=== PATIENT | female | born 1965 | race African-American/Black ===

== ENCOUNTER 2016-09-23 12:16 | Emergency (ER) | payer OTHER ==
[2016-09-23 13:00] LABS: Clarity Slightly Cloudy (Clear); Glucose, Urine (Dipstick) Negative (Negative); Leukocyte Negative (Negative); Nitrite Negative (Negative); Protein, Urine (Dipstick) Negative (Neg-Trace); Specific Gravity, Urine 1.025 (1.005-1.030)
[2016-09-23 13:01] LABS: Bacteria/HPF 1+ HPF (None Seen); Bilirubin Negative (Negative); Blood, Urine Moderate (Negative); Urobilinogen 0.2 mg/dL (0.2-1.0); WBC/HPF 0-3 HPF (0-3)
[2016-09-23] MEDS ORDERED: Benzonatate 100 MG CAP ONE (13:01)
== END 2016-09-23 13:34 | disposition home or self-care (01) ==
LOC: MADERS 12:16
DX: J20.9 Acute bronchitis, unspecified (principal); F17.210 Nicotine dependence, cigarettes, uncomplicated
CPT/HCPCS: 81001; 87077; 87086; 87186; 99283

== ENCOUNTER 2016-10-23 15:02 | Emergency (ER) | payer OTHER ==
[2016-10-23] MEDS ORDERED: Lidocaine 1% 20 ML MDV ONE (15:34)
[2016-10-23] MEDS ORDERED: HYDROcodone/Acetaminophen 10/325 mg Tablet ONE (15:34)
[2016-10-23] MEDS ORDERED: cefTRIAXone\\ROCEPHIN 1 GM VIAL ONE (15:34)
[2016-10-23] MEDS ORDERED: Azithromycin 250 MG TAB ONE (15:34)
== END 2016-10-23 15:55 | disposition home or self-care (01) ==
LOC: MADERS 15:02
DX: N76.0 Acute vaginitis (principal); F17.210 Nicotine dependence, cigarettes, uncomplicated
CPT/HCPCS: 96372; J0696; J2001

== ENCOUNTER 2016-10-28 18:48 | Emergency (ER) | payer OTHER ==
[~2016-10-28 18:48] MED LIST: Lidocaine 1% 20 ML MDV ONE
[2016-10-28] MEDS ORDERED: cefTRIAXone\\ROCEPHIN 250 MG VIAL ONE (19:41)
[2016-10-28] MEDS ORDERED: Doxycycline 100 MG CAP ONE (19:41)
[2016-10-28] MEDS ORDERED: metroNIDAZOLE 250 MG TAB ONE ×2 (19:56→19:59)
[2016-10-28] MEDS ORDERED: Fluconazole 100 MG TAB ONE (20:04)
[2016-11-03 19:59] LABS: Chlamydia by PCR Inconclusive (NotDetected); GC by PCR Inconclusive (NotDetected)
== END 2016-10-28 20:15 | disposition home or self-care (01) ==
LOC: MADERS 18:48
DX: A64 Unspecified sexually transmitted disease (principal); J40 Bronchitis, not specified as acute or chronic; F17.210 Nicotine dependence, cigarettes, uncomplicated
CPT/HCPCS: 87480; 87491; 87510; 87591; 87660; 96372; J0696; J2001

== ENCOUNTER 2016-11-19 12:24 | Emergency (ER) | payer OTHER ==
[2016-11-19] MEDS ORDERED: Ketorolac Tromethamine 30 MG/ML VIAL ONE (12:51)
[2016-11-19] MEDS ORDERED: Acetaminophen 500 MG TAB ONE (12:51)
[2016-11-19] MEDS ORDERED: Ketorolac Tromethamine 60 MG/2 ML VIAL ONE (12:55)
--- NOTE | 2016-11-19 14:26 | RAD ---
PA AND LATERAL CHEST: History: Chest pain. FINDINGS: Comparison made with exam of 01-19-08. The heart size is normal. The lungs are well expanded without focal areas of consolidation, pneumoth orax, or pleural effusions. Old right clavicular shaft fracture is again seen. IMPRESSION: No radiographic evidence of acute cardiopulmonary process. POS: [facility]
== END 2016-11-19 13:25 | disposition home or self-care (01) ==
LOC: MADERS 12:24
DX: M54.5 Low back pain (principal); F17.210 Nicotine dependence, cigarettes, uncomplicated
CPT/HCPCS: 71020; 96372; J1885

== ENCOUNTER 2016-12-22 14:59 | Emergency (ER) | payer OTHER ==
--- NOTE | 2016-12-22 15:55 | RAD ---
TWO VIEW CHEST: Comparison: 11-19-16 Indication: Cough. FINDINGS: There are patchy bibasilar opacities. Lungs are hyperinflated. Cardiac silhouette is within normal l imits of size. Biapical pleural irreguralities similar. IMPRESSION: 1. Hyperinflated lungs indicating COPD. 2. Patchy bibasilar opacities which may relate to scarring or volume loss. POS: [facility]
[2016-12-22 17:06] LABS: #Basophils 0.1 thou/uL (0.0-0.2); #Eosinphils 0.1 thou/uL (0.0-0.7); #Lymphocytes 2.3 thou/uL (1.20-3.40); #Monocytes 0.4 thou/uL (0.11-0.59); #Neutrophils 3.4 thou/uL (1.40-6.50); %Basophils 0.9 % (0.0-1.0); %Lymphocytes 36.4 % (21.0-51.0); %Monocytes 6.9 % (0.0-10.0); %Neutrophils 53.8 % (42.0-75.0); Hemoglobin 13.5 g/dL (12.0-16.0); Mean Corpuscular HGB CONC 33.1 g/dL (32.0-36.0); Mean Corpuscular Hemoglobin 31.2 pg (27.0-31.0); Mean Corpuscular Volume 94.4 fl (81.0-99.0); Mean Platelet Volume 8.6 fL (7.4-10.4); Platelet Count 289 thou/uL (130-400); RBC Distribution Width 12.8 % (11.5-14.5); Red Blood Cell (RBC) Count 4.33 mill/uL (4.20-5.40); White Blood Cell (WBC) Count 6.2 thou/uL (4.8-10.8)
--- NOTE | 2016-12-22 17:12 | RAD ---
THREE VIEWS OF THE RIGHT SMALL TOE: Date: 12-22-17 History: Injury. FINDINGS: No fracture is seen. There does appear to be mild irregularity involving the distal interphalangeal joint and septic arthritis cannot be entirely excluded on this exam. There is a subcutaneous soft ti ssue swelling about the small toe. No dislocation is seen. IMPRESSION: Subcutaneous soft tissue swelling right small toe with irregularity in the region of the distal inte rphalangeal joint. Septic arthritis cannot be entirely excluded. Clinical correlation is recommended . POS: [facility]
[2016-12-22 17:20] LABS: ALT (SGPT) 12 U/L (8-55); AST (SGOT) 14 U/L (5-34); Albumin 4.2 g/dL (3.5-5.0); Alkaline Phosphatase 89 U/L (40-150); Anion Gap 15 mmol/L (10-20); BUN (Urea Nitrogen) 11 mg/dL (7.0-18.7); Bilirubin, Total 0.7 mg/dL (0.2-1.2); CRP (Inflammatory) 0.53 mg/dL (= or < 0.5); Calc. Creatinine Clearance 0 mL/min (70-130); Calcium 9.6 mg/dL (7.8-10.44); Carbon Dioxide 22 mmol/L (22-29); Chloride 107 mmol/L (98-107); Estimated GFR-MDRD Greater than 90; Glucose 77 mg/dL (70-105); Potassium 3.8 mmol/L (3.5-5.1); Protein, Total 8.2 g/dL (6.0-8.3); Sodium 140 mmol/L (136-145)
== END 2016-12-22 17:47 | disposition home or self-care (01) ==
LOC: MADERS 14:59
DX: J44.1 Chronic obstructive pulmonary disease with (acute) exacerbation (principal); F17.210 Nicotine dependence, cigarettes, uncomplicated
CPT/HCPCS: 36415; 71020; 80053; 85025; 85652; 86140

== ENCOUNTER 2017-01-06 12:32 | Emergency (ER) | payer OTHER | END 2017-01-06 14:00 | disposition left against medical advice (07) | LOC: MADERS 12:32 | DX: Z53.21 Procedure and treatment not carried out due to patient leaving prior to being seen by health care provider (principal) ==

== ENCOUNTER 2017-01-27 09:03 | Emergency (ER) | payer OTHER ==
[2017-01-27] MEDS ORDERED: AMOXicillin 250 MG CAP ONE (10:04)
[2017-01-27] MEDS ORDERED: Benzonatate 100 MG CAP ONE (10:04)
[2017-01-27] MEDS ORDERED: Naproxen 500 MG TAB ONE (10:04)
== END 2017-01-27 10:11 | disposition home or self-care (01) ==
LOC: MADERS 09:03
DX: J20.9 Acute bronchitis, unspecified (principal); M79.1 Myalgia; R59.0 Localized enlarged lymph nodes; F17.210 Nicotine dependence, cigarettes, uncomplicated
CPT/HCPCS: 99283

== ENCOUNTER 2017-07-03 11:36 | Emergency (ER) | payer OTHER ==
[2017-07-03 11:54] LABS: Bilirubin Negative (Negative); Blood, Urine Small (Negative); Clarity Cloudy (Clear); Glucose, Urine (Dipstick) Negative (Negative); Leukocyte Trace (Negative); Nitrite Positive (Negative); Protein, Urine (Dipstick) Negative (Neg-Trace); Urobilinogen 0.2 mg/dL (0.2-1.0)
[2017-07-03 11:59] LABS: Bacteria/HPF 4+ HPF (None Seen); RBC/HPF 0-3 HPF (0-3); Squamous Epithelial 0-3 HPF (0-3)
--- NOTE | 2017-07-03 12:44 | RAD ---
RIGHT FOREARM TWO VIEWS: History: Fall. Right forearm pain. FINDINGS: The right forearm is intact. POS: [facility]
--- NOTE | 2017-07-03 13:10 | RAD ---
RIGHT HAND 3 VIEWS: Date: 07/03/17 HISTORY: Fall. Right thumb pain and deformity. FINDINGS/IMPRESSION: No acute fracture or dislocation is seen. There is subluxation of the first MCP joint. POS: [facility]
[2017-07-03] MEDS ORDERED: Sulfameth/Trimethoprim DS 800-160mg TAB ONE (13:33)
[2017-07-03] MEDS ORDERED: HYDROcodone/Acetaminophen 10/325 mg Tablet ONE (13:33)
[2017-07-03] MEDS ORDERED: Naproxen 500 MG TAB ONE (13:33)
== END 2017-07-03 14:27 | disposition home or self-care (01) ==
LOC: MADERS 11:36
DX: S63.111A Subluxation of metacarpophalangeal joint of right thumb, initial encounter (principal); N39.0 Urinary tract infection, site not specified; F17.210 Nicotine dependence, cigarettes, uncomplicated; W19.XXXA Unspecified fall, initial encounter
CPT/HCPCS: 81001; 87077; 87086; 87186; J2001

== ENCOUNTER 2017-09-17 16:35 | Outpatient (CLI) | payer OTHER ==
[2017-09-17 17:05] LABS: #Basophils 0.1 thou/uL (0.0-0.2); #Eosinphils 0.1 thou/uL (0.0-0.7); #Lymphocytes 2.6 thou/uL (1.20-3.40); #Monocytes 0.6 thou/uL (0.11-0.59); #Neutrophils 4.9 thou/uL (1.40-6.50); %Basophils 1.2 % (0.0-1.0); %Eosinophils 1.4 % (0.0-10.0); %Lymphocytes 31.3 % (21.0-51.0); %Monocytes 7.3 % (0.0-10.0); %Neutrophils 58.8 % (42.0-75.0); Hemoglobin 12.9 g/dL (12.0-16.0); Mean Corpuscular HGB CONC 32.2 g/dL (32.0-36.0); Mean Corpuscular Hemoglobin 29.3 pg (27.0-31.0); Mean Platelet Volume 8.5 fL (7.4-10.4); Platelet Count 288 thou/uL (130-400); RBC Distribution Width 13.3 % (11.5-14.5); Red Blood Cell (RBC) Count 4.42 mill/uL (4.20-5.40); White Blood Cell (WBC) Count 8.4 thou/uL (4.8-10.8)
--- NOTE | 2017-09-17 19:00 | RAD ---
TWO VIEWS RIGHT FOREARM: Date: 09-17-17 History: Injury to right forearm one week ago. Comparison: 07-03-17 FINDINGS: There is no fracture or dislocation seen involving the right forearm. There has been no interval rabago ge from the study on 07-13-17. A distal ulna is slightly displaced dorsally. This is probably projecti onal in origin. IMPRESSION: No acute osseous abnormality of the right forearm. POS: [facility]
--- NOTE | 2017-09-17 19:00 | RAD ---
RIGHT HAND THREE VIEWS: 09/17/2017 PROVIDED CLINICAL HISTORY: Right hand pain, status post injury. COMPARISON: 07/03/2017 FINDINGS: No evidence for fracture or other acute osseous abnormality. If there is persistent clinical concern, conservative management and follow-up imaging are advised. IMPRESSION: As above. POS: [facility]
--- NOTE | 2017-09-17 19:01 | RAD ---
RIGHT ELBOW FOUR VIEWS: History: Right elbow pain. FINDINGS: Radiocapitellar alignment is maintained. Minimal osteophytosis. NO acute fracture, dislocation, or fl uid distention of the joint capsule. IMPRESSION: No acute osseous abnormalities are demonstrated. POS: [facility]
[2017-09-17 21:54] LABS: Follow-up Chemistry Comp? YES; Follow-up Result - Chemistry REPORT FAXED
[2017-09-19 16:30] LABS: ANA Symphony (Qualitative) Negative (Negative); EliA RAS New Method **** NEW METHOD ****; Rheumatoid Factor IgA Antibody 3.1 IU/mL (<14 Negative); Rheumatoid Factor IgM Antibody Less than 0.5 IU/mL (<3.5 Negative); dsDNA IgG Antibody 1.6 IU/mL (<10 Negative)
== END 2017-09-17 16:36 | disposition home or self-care (01) ==
LOC: MADLAB 16:35
PROVIDERS: ATTEND Nurse Practitioner Family
DX: M25.521 Pain in right elbow (principal); M79.644 Pain in right finger(s)
CPT/HCPCS: 36415; 83520; 84550; 85025; 86038; 86225

== ENCOUNTER 2018-03-12 10:05 | Emergency (ER) | payer MEDICAID, OTHER | END 2018-03-12 10:38 | disposition home or self-care (01) | LOC: MADERS 10:05 | DX: L73.9 Follicular disorder, unspecified (principal); F17.210 Nicotine dependence, cigarettes, uncomplicated; K92.2 Gastrointestinal hemorrhage, unspecified | CPT/HCPCS: 99282 ==

== ENCOUNTER 2018-04-04 18:08 | Emergency (ER) | payer OTHER ==
[2018-04-04 19:34] LABS: #Basophils 0.1 thou/uL (0.0-0.2); #Eosinphils 0.1 thou/uL (0.0-0.7); #Lymphocytes 2.9 thou/uL (1.20-3.40); #Monocytes 0.8 thou/uL (0.11-0.59); #Neutrophils 5.8 thou/uL (1.40-6.50); %Eosinophils 1.4 % (0.0-10.0); %Lymphocytes 29.7 % (21.0-51.0); %Monocytes 8.3 % (0.0-10.0); %Neutrophils 59.6 % (42.0-75.0); Mean Corpuscular Hemoglobin 30.6 pg (27.0-31.0); Mean Corpuscular Volume 92.6 fL (78.0-98.0); Mean Platelet Volume 8.1 fL (7.4-10.4); Platelet Count 314 thou/uL (130-400); RBC Distribution Width 12.8 % (11.5-14.5); Red Blood Cell (RBC) Count 4.26 mill/uL (4.20-5.40); White Blood Cell (WBC) Count 9.6 thou/uL (4.8-10.8)
[2018-04-04 19:40] LABS: Prothrombin Time 12.8 SEC (12.0-14.7)
[2018-04-04 19:41] LABS: PTT 25.9 SEC (22.9-36.1)
[2018-04-04 19:50] LABS: ALT (SGPT) 11 U/L (8-55); AST (SGOT) 14 U/L (5-34); Alkaline Phosphatase 106 U/L (40-150); Anion Gap 12 mmol/L (10-20); BUN (Urea Nitrogen) 18 mg/dL (7.0-18.7); Bilirubin, Total 0.5 mg/dL (0.2-1.2); Calc. Creatinine Clearance 0 mL/min (70-130); Calcium 9.5 mg/dL (7.8-10.44); Carbon Dioxide 26 mmol/L (22-29); Chloride 107 mmol/L (98-107); Estimated GFR-MDRD 66; Globulin 3.4 g/dL (2.4-3.5); Glucose 102 mg/dL (70-105); Potassium 3.9 mmol/L (3.5-5.1); Protein, Total 7.4 g/dL (6.0-8.3); Sodium 141 mmol/L (136-145)
== END 2018-04-04 21:11 | disposition short-term general hospital (02) ==
LOC: MADERS 18:08
DX: K92.2 Gastrointestinal hemorrhage, unspecified (principal); F17.210 Nicotine dependence, cigarettes, uncomplicated
CPT/HCPCS: 80053; 82274; 85025; 85610; 85730; 99285

== ENCOUNTER 2018-05-08 20:13 | Emergency (ER) | payer OTHER ==
[2018-05-08] MEDS ORDERED: Ketorolac Tromethamine 60 MG/2 ML VIAL ONE (20:56)
--- NOTE | 2018-05-08 22:25 | RAD ---
EXAM: CHEST TWO VIEWS: 05/08/18 HISTORY: Chest injury. COMPARISON: 12/22/16. FINDINGS: Minimal increased linear and interstitial markings noted bilaterally evidence for some chronic change . Biapical pleural thickening. Heart size is within normal limits. No pneumothorax, pleural effusion, or other significant acute intrathoracic disease. IMPRESSION: Scattered chronic lung changes in the bases as well as some biapical pleural thickening. No pneumoth orax or pleural effusion or other significant acute intrathoracic disease. Atherosclerosis of the aor ta. POS: [facility]
== END 2018-05-08 21:37 | disposition home or self-care (01) ==
LOC: MADERS 20:13
DX: S20.212A Contusion of left front wall of thorax, initial encounter (principal); F17.210 Nicotine dependence, cigarettes, uncomplicated; Z71.6 Tobacco abuse counseling; W18.30XA Fall on same level, unspecified, initial encounter
CPT/HCPCS: 71046; 96372; 99406; J1885

== ENCOUNTER 2018-09-27 20:12 | Emergency (ER) | payer OTHER ==
[2018-09-27] MEDS ORDERED: Ibuprofen 800 MG TAB ONE (20:29)
--- NOTE | 2018-09-27 20:41 | RAD ---
EXAM: 3 views of the right thumb HISTORY: Injury to the thumb with pain COMPARISON: None FINDINGS: There may be a small fracture of the base of the distal phalanx near the interphalangeal shari int. Alternatively, this could represent a sesamoid bone. Mild soft tissue swelling is seen. No degenerative changes are present. No radiopaque foreign body is seen. IMPRESSION: Possible distal phalanx fracture. Correlate with point tenderness at the interphalangeal joint.
== END 2018-09-27 21:12 | disposition home or self-care (01) ==
LOC: MADERS 20:12
DX: S62.521A Displaced fracture of distal phalanx of right thumb, initial encounter for closed fracture (principal); L73.9 Follicular disorder, unspecified; F17.210 Nicotine dependence, cigarettes, uncomplicated; Z71.6 Tobacco abuse counseling; W22.8XXA Striking against or struck by other objects, initial encounter
CPT/HCPCS: 90471

== ENCOUNTER 2018-10-01 10:08 | Emergency (ER) | payer OTHER | END 2018-10-01 11:00 | disposition home or self-care (01) | LOC: MADERS 10:08 | DX: L73.9 Follicular disorder, unspecified (principal); F17.210 Nicotine dependence, cigarettes, uncomplicated | CPT/HCPCS: 99283 ==

== ENCOUNTER 2018-10-22 08:46 | Emergency (ER) | payer OTHER ==
[2018-10-22] MEDS ORDERED: Ondansetron ODT 4 MG TAB ONE (09:23)
[2018-10-22] MEDS ORDERED: Loperamide HCl 2 MG CAP ONE (09:23)
--- NOTE | 2018-10-22 10:10 | RAD ---
LEFT HAND 3 VIEWS: HISTORY: Hand injury. FINDINGS: There are some very mild osteoarthritic changes present. There are no signs of fracture or dislocati on. IMPRESSION: No evidence of fracture. POS: [facility]
== END 2018-10-22 10:15 | disposition home or self-care (01) ==
LOC: MADERS 08:46
DX: S63.611A Unspecified sprain of left index finger, initial encounter (principal); R11.2 Nausea with vomiting, unspecified; R19.7 Diarrhea, unspecified; F17.210 Nicotine dependence, cigarettes, uncomplicated; X58.XXXA Exposure to other specified factors, initial encounter
CPT/HCPCS: Q0162

== ENCOUNTER 2019-01-24 18:49 | Emergency (ER) | payer OTHER | END 2019-01-24 19:15 | disposition home or self-care (01) | LOC: MADERS 18:49 | DX: R19.7 Diarrhea, unspecified (principal); F17.210 Nicotine dependence, cigarettes, uncomplicated | CPT/HCPCS: 99283 ==

== ENCOUNTER 2019-03-09 19:52 | Emergency (ER) | payer OTHER | END 2019-03-09 20:30 | disposition left against medical advice (07) | LOC: MADERS 19:52 | DX: Z53.21 Procedure and treatment not carried out due to patient leaving prior to being seen by health care provider (principal) ==

== ENCOUNTER 2019-03-10 08:18 | Emergency (ER) | payer OTHER ==
[~2019-03-10 08:18] MED LIST changes: -Lidocaine 1% 20 ML MDV ONE; +Sodium Chloride Irrig Solution 250 ML BOT ONE
[2019-03-10] MEDS ORDERED: Lidocaine 1% w/Epinephrine 1:100K 20 ML VIAL ONE (09:09)
[2019-03-10] MEDS ORDERED: Adacel (T-DAP) 0.5 ML SYRINGE ONE (09:46)
== END 2019-03-10 09:45 | disposition home or self-care (01) ==
LOC: MADERS 08:18
DX: N76.4 Abscess of vulva (principal); F17.210 Nicotine dependence, cigarettes, uncomplicated
CPT/HCPCS: 90715

== ENCOUNTER 2019-10-29 20:56 | Emergency (ER) | payer OTHER ==
[2019-10-29] MEDS ORDERED: Ondansetron ODT 4 MG TAB ONE (21:30)
== END 2019-10-29 21:35 | disposition home or self-care (01) ==
LOC: MADERS 20:56
DX: U07.1 COVID-19 (principal); F17.210 Nicotine dependence, cigarettes, uncomplicated
CPT/HCPCS: 99283; Q0162

== ENCOUNTER 2019-11-18 18:46 | Emergency (ER) | payer OTHER ==
[2019-11-18 19:23] LABS: Bilirubin Negative (Negative); Blood, Urine Small (Negative); Clarity Slightly Cloudy (Clear); Glucose, Urine (Dipstick) Negative (Negative); Ketone, Urine Negative (Negative); Leukocyte Negative (Negative); Nitrite Negative (Negative); Protein, Urine (Dipstick) Negative (Neg-Trace); Specific Gravity, Urine 1.025 (1.005-1.030)
[2019-11-18 19:26] LABS: Bacteria/HPF 2+ HPF (None Seen); RBC/HPF 0-3 HPF (0-3); WBC/HPF 0-3 HPF (0-3)
[2019-11-18] MEDS ORDERED: Morphine 2 MG/ML SYRINGE ONE (19:47)
[2019-11-18] MEDS ORDERED: Sodium Chloride 0.9% 1,000 ML ONE (19:47)
[2019-11-18] MEDS ORDERED: Ondansetron PF 4 MG/2 ML Vial ONE (19:47)
[2019-11-18 20:03] LABS: #Basophils 0.1 thou/uL (0.0-0.2); #Eosinphils 0.2 thou/uL (0.0-0.7); #Lymphocytes 3.3 thou/uL (1.20-3.40); #Monocytes 0.7 thou/uL (0.11-0.59); #Neutrophils 5.2 thou/uL (1.40-6.50); %Basophils 0.9 % (0.0-1.0); %Eosinophils 1.9 % (0.0-10.0); %Lymphocytes 34.7 % (21.0-51.0); %Monocytes 7.3 % (0.0-10.0); %Neutrophils 55.2 % (42.0-75.0); Hemoglobin 12.6 g/dL (12.0-16.0); Mean Corpuscular HGB CONC 33.4 g/dL (32.0-36.0); Mean Corpuscular Volume 93.1 fL (78.0-98.0); Platelet Count 285 thou/uL (130-400); RBC Distribution Width 12.6 % (11.5-14.5); Red Blood Cell (RBC) Count 4.07 mill/uL (4.20-5.40); White Blood Cell (WBC) Count 9.4 thou/uL (4.8-10.8)
[2019-11-18 20:07] LABS: ALT (SGPT) 8 U/L (8-55); AST (SGOT) 9 U/L (5-34); Albumin 3.8 g/dL (3.5-5.0); Alkaline Phosphatase 85 U/L (40-110); Anion Gap 13 mmol/L (10-20); BUN (Urea Nitrogen) 10 mg/dL (9.8-20.1); Bilirubin, Total 0.5 mg/dL (0.2-1.2); Calc. Creatinine Clearance 0 mL/min (70-130); Calcium 8.8 mg/dL (7.8-10.44); Carbon Dioxide 25 mmol/L (22-29); Chloride 107 mmol/L (98-107); Estimated GFR-MDRD Greater than 90; Globulin 3.2 g/dL (2.4-3.5); Glucose 95 mg/dL (70-105); Lipase 43 U/L (8-78); Potassium 3.4 mmol/L (3.5-5.1); Sodium 142 mmol/L (136-145)
--- NOTE | 2019-11-18 20:28 | RAD ---
TWO VIEWS CHEST: 11/18/19 PROVIDED CLINICAL HISTORY: Productive cough. FINDINGS: Comparison 05/08/28. The cardiac and mediastinal silhouette is within normal limits. No focal consolidation, pleural fluid , or pneumothorax apparent. IMPRESSION: No evidence for an acute cardiopulmonary process. POS: [facility]
--- NOTE | 2019-11-18 20:42 | CT ---
CT ABDOMEN AND PELVIS WITH IV CONTRAST: 11/18/19. PROVIDED CLINICAL HISTORY: Abdominal pain. FINDINGS: Comparison 04/04/18. The visualized lung bases are free of significant opacity. The liver, spleen, pancreas, kidneys and adrenal glands demonstrate an unremarkable CT appearance. St able right renal hypodensity likely a cyst. Changes of prior cholecystectomy are redemonstrated. Ther e is no bowel dilatation, inflammatory fat stranding, free fluid or free air apparent. The appendix a ppears normal. The regional major vascular structures appear unremarkable with the exception of scattered vascular c alcification. The osseous structures demonstrate no concerning lytic or blastic lesions. IMPRESSION: No evidence for an acute process. POS: [facility]
== END 2019-11-18 21:00 | disposition home or self-care (01) ==
LOC: MADERS 18:46
DX: M54.6 Pain in thoracic spine (principal); R19.7 Diarrhea, unspecified; R10.9 Unspecified abdominal pain; F17.210 Nicotine dependence, cigarettes, uncomplicated
CPT/HCPCS: 71046; 74177; 80053; 81003; 81015; 83605; 83690; 85025; 96361; 96374; 96375; J2270; J2405; J7050

== ENCOUNTER 2020-02-15 11:42 | Emergency (ER) | payer OTHER ==
[2020-02-15] MEDS ORDERED: HYDROcodone/Acetaminophen 5/325 mg Tablet ONE (12:26)
--- NOTE | 2020-02-15 12:47 | RAD ---
Exam: XR Knee Rt 4 View STANDARD HISTORY: Right knee pain without history of trauma. COMPARISON: None FINDINGS: No acute fracture, dislocation, or other acute osseous abnormality is identified. There is question of minimal edema in the region of Hoffa's fat pad. IMPRESSION: No acute osseous abnormality is identified. If there is concern for internal derangement, MRI right k nee can be performed for further evaluation.
--- NOTE | 2020-02-15 12:52 | RAD ---
EXAM: 3 views of the lumbosacral spine HISTORY: Low back pain COMPARISON: None FINDINGS: 3 views of the lumbosacral spine shows normal height and alignment of the vertebral bodies and intervertebral discs without fracture or subluxation. Mild osteophyte formation is seen in the lower lumbosacral spine. The sacroiliac joints are unremarkable. Vascular calcifications are seen in the aorta. Cholecystectom y clips are seen. IMPRESSION: Mild degenerative changes without acute osseous abnormality.
== END 2020-02-15 15:10 | disposition home or self-care (01) ==
LOC: MADERS 11:42
DX: S33.5XXA Sprain of ligaments of lumbar spine, initial encounter (principal); S80.01XA Contusion of right knee, initial encounter; F32.9 Major depressive disorder, single episode, unspecified; F17.210 Nicotine dependence, cigarettes, uncomplicated; V43.52XA Car driver injured in collision with other type car in traffic accident, initial encounter
CPT/HCPCS: 72100

== ENCOUNTER 2020-04-12 07:25 | Outpatient (CLI) | payer OTHER ==
--- NOTE | 2020-04-12 10:04 | ULT ---
ABDOMINAL ULTRASOUND: HISTORY: Abdominal pain and distention. Discolored stools. FINDINGS: The patient is post cholecystectomy years ago. The common bile duct is normal caliber. The liver and spleen appear unremarkable. Visualized aorta and IVC appear normal. Pancreas is mostly obscured. Both kidneys are imaged and appear unremarkable. Both kidneys measure approximately 11 cm length. IMPRESSION: Unremarkable abdominal ultrasound. POS: [facility]
== END 2020-04-12 07:26 | disposition home or self-care (01) ==
LOC: MADULT 07:25
PROVIDERS: ATTEND Family Medicine
DX: R10.9 Unspecified abdominal pain (principal); R19.5 Other fecal abnormalities; R14.0 Abdominal distension (gaseous)
CPT/HCPCS: 93975

== ENCOUNTER 2020-08-20 00:08 | Emergency (ER) | payer OTHER ==
[2020-08-20 00:50] LABS: Hemoglobin 12.6 g/dL (12.0-16.0); Mean Corpuscular Hemoglobin 30.4 pg (27.0-31.0); Mean Corpuscular Volume 95.2 fL (78.0-98.0); Mean Platelet Volume 10.1 fL (7.4-10.4); Platelet Count 287 thou/uL (130-400); RBC Distribution Width 13.4 % (11.5-14.5); Red Blood Cell (RBC) Count 4.16 mill/uL (4.20-5.40); White Blood Cell (WBC) Count 11.5 thou/uL (4.8-10.8)
[2020-08-20 00:58] LABS: Eosinophils 3 % (0-10); Lymphocytes 20 % (21-51); MDiff Complete? YES; Monocytes 4 % (0-10); Neutrophil 73 % (42-75); Platelet Morphology Comment Appears Adequate; RBC Morphology Normal
[2020-08-20 01:03] LABS: ALT (SGPT) Less than 7 U/L (8-55); AST (SGOT) 9 U/L (5-34); Albumin 3.6 g/dL (3.5-5.0); Alkaline Phosphatase 97 U/L (40-110); Anion Gap 14 mmol/L (10-20); BUN (Urea Nitrogen) 27 mg/dL (9.8-20.1); Bilirubin, Total 0.8 mg/dL (0.2-1.2); Calc. Creatinine Clearance 0 mL/min (70-130); Calcium 8.5 mg/dL (7.8-10.44); Carbon Dioxide 23 mmol/L (22-29); Chloride 105 mmol/L (98-107); Globulin 3.1 g/dL (2.4-3.5); Glucose 154 mg/dL (70-105); Lipase 44 U/L (8-78); Protein, Total 6.7 g/dL (6.0-8.3); Sodium 139 mmol/L (136-145)
[2020-08-20 01:27] LABS: Potassium 2.9 mmol/L (3.5-5.1)
[2020-08-20] MEDS ORDERED: Potassium Chloride 20 MEQ TAB ONE (01:37)
[2020-08-20 01:58] LABS: Bilirubin Negative (Negative); Blood, Urine Negative (Negative); Clarity Clear (Clear); Glucose, Urine (Dipstick) Negative (Negative); Ketone, Urine Negative (Negative); Leukocyte Negative (Negative); Nitrite Negative (Negative); Protein, Urine (Dipstick) Negative (Neg-Trace); Urobilinogen 0.2 mg/dL (Less than 2)
[2020-08-20 02:09] LABS: Amphetamine Not Detected (NotDetected); Barbiturates Screen Not Detected (NotDetected); Benzodiazepine Screen Not Detected (NotDetected); Cocaine Metabolite Screen Detected (NotDetected); Medtox Control Line Valid? VALID (VALID); Methadone Not Detected (NotDetected); Methamphetamine Not Detected (NotDetected); Opiate Screen Not Detected (NotDetected); Oxycodone Screen Not Detected (NotDetected); Phencyclidine (PCP) Not Detected (NotDetected); THC/Cannabinoid Screen Detected (NotDetected); Tricyclic Screen Detected (NotDetected)
[2020-08-20] MEDS ORDERED: Ibuprofen 200 MG TAB ONE ×2 (10:38→10:40)
== END 2020-08-20 02:41 | disposition short-term general hospital (02) ==
LOC: MADERS 00:08
DX: R55 Syncope and collapse (principal); E87.6 Hypokalemia; F17.210 Nicotine dependence, cigarettes, uncomplicated
CPT/HCPCS: 36415; 70450; 72125; 74177; 80053; 80306; 81003; 83690; 84484; 85025; 93005

== ENCOUNTER 2022-06-02 22:53 | Emergency (ER) | payer OTHER ==
[2022-06-02] MEDS ORDERED: HYDROcodone/Acetaminophen 5/325 mg Tablet ONE (23:17)
== END 2022-06-02 23:24 | disposition home or self-care (01) ==
LOC: MADERS 22:53
DX: K05.10 Chronic gingivitis, plaque induced (principal); K12.30 Oral mucositis (ulcerative), unspecified; F17.210 Nicotine dependence, cigarettes, uncomplicated
CPT/HCPCS: 99282

== ENCOUNTER 2024-11-23 21:54 | Emergency (ER) | payer OTHER ==
[2024-11-23] MEDS ORDERED: HYDROcodone/Acetaminophen 10/325 mg Tablet ONE (22:29)
[2024-11-23] MEDS ORDERED: Ibuprofen 800 MG TAB ONE (22:29)
== END 2024-11-23 22:36 | disposition home or self-care (01) ==
LOC: MADERS 21:54
DX: M54.17 Radiculopathy, lumbosacral region (principal); Z87.891 Personal history of nicotine dependence
CPT/HCPCS: 99283

== ENCOUNTER 2024-12-17 19:26 | Emergency (ER) | payer OTHER ==
[2024-12-17] MEDS ORDERED: Ibuprofen 800 MG TAB ONE (20:02)
[2024-12-17] MEDS ORDERED: Orphenadrine Citrate 60 MG/2 ML VIAL ONE (20:02)
[2024-12-17] MEDS ORDERED: Gabapentin 100 MG CAP ONE (20:02)
[2024-12-17 20:30] LABS: Glucose, Urine (Dipstick) Negative (Negative); Leukocyte Negative (Negative); Protein, Urine (Dipstick) Negative (Neg-Trace); Specific Gravity, Urine 1.015 (1.005-1.030)
[2024-12-17 20:32] LABS: Bacteria/HPF 1+ HPF (None Seen); CAUTI Indications for Culture Pelvic or flank pain; RBC/HPF None Seen HPF (0-3); WBC/HPF 0-3 HPF (0-3)
[2024-12-17 20:33] LABS: Urine Culture Reflex No No
== END 2024-12-17 21:29 | disposition home or self-care (01) ==
LOC: MADERS 19:26
DX: M54.50 Low back pain, unspecified (principal)
CPT/HCPCS: 81001; 96372; 99283; J2360